=== PATIENT | male | born 1980 | race African-American/Black ===

== ENCOUNTER 2017-04-08 21:56 | Emergency (ER) | payer OTHER ==
[~2017-04-08] VITALS: Ht 182.9 cm; Wt 103.0 kg
[2017-04-08 21:57] VITALS: BP 135/80
== END 2017-04-09 02:21 | disposition left against medical advice (07) ==
LOC: M ED 21:56
DX: M54.9 Dorsalgia, unspecified (principal); Z53.21 Procedure and treatment not carried out due to patient leaving prior to being seen by health care provider